=== PATIENT | male | born 1995 | race Two or more races ===

== ENCOUNTER 2023-12-18 15:04 | Emergency (ER) | payer OTHER ==
[~2023-12-18] VITALS: Ht 182.9 cm; Wt 150.0 kg
[2023-12-18 15:58] VITALS: BP 126/73; PULSE 125; RESP 16; TEMP 97.4; O2SAT 95
[2023-12-18] MEDS: HYDROcodone-ACET 5/325MG TAB PO ONE (17:04)
[2023-12-18] MEDS ORDERED: HYDR-4902 PO (17:35)
== END 2023-12-18 17:44 | disposition home or self-care (01) ==
LOC: ER 15:04
DX: S92.131A Displaced fracture of posterior process of right talus, initial encounter for closed fracture (principal); Z88.6 Allergy status to analgesic agent; X58.XXXA Exposure to other specified factors, initial encounter; Y93.01 Activity, walking, marching and hiking; Y92.89 Other specified places as the place of occurrence of the external cause; Y99.8 Other external cause status
CPT/HCPCS: 29515; 73630